=== PATIENT | male | born 1985 | race Caucasian/White ===

== ENCOUNTER 2016-11-15 21:39 | Emergency (ER) | payer MEDICAID ==
[2016-11-15] MEDS ORDERED: ONDANSETRON 4 MG/2 ML VIAL ONE (21:47)
--- NOTE | 2016-11-15 22:00 | EDPHY ---
H & P Stated Complaint: chills, lightheaded, nausea,, genaral malaise Time Seen by Provider: 11/15/16 21:59 - Personal History Current Tetanus Diphtheria and Acellular Pertussis (TDAP): Yes - Medical/Surgical History Hx Asthma: No Hx Chronic Respiratory Disease: No Hx Diabetes: No Hx Cardiac Disease: No Hx Renal Disease: No Hx Cirrhosis: No Hx Alcoholism: No Hx HIV/AIDS: No Hx Splenectomy or Spleen Trauma: No - Social History Smoking Status: Never smoked Constitutional: Initial Vital Signs Temperature (C) 36.5 C 11/15/16 21:43 Heart Rate 73 11/15/16 21:43 Respiratory Rate 20 11/15/16 21:43 Blood Pressure 155/107 H 11/15/16 21:43 O2 Sat (%) 98 11/15/16 21:43 O2 Delivery Mode Room Air Allergies/Adverse Reactions: Penicillins Allergy (Verified 11/15/16 21:43) Home Medications: Medication Instructions Recorded NK [No Known Home Meds] 11/15/16 Departure - Departure Referrals: NONE *PRIMARY CARE P,. [Primary Care Provider] - As per Instructions
[2016-11-15] MEDS ORDERED: NS 1,000 ML IV ONE (22:26)
--- NOTE | 2016-11-15 22:35 | EDPHY ---
HPI/HX/ROS/PE/MDM Narrative: CHIEF COMPLAINT: Lightheadedness HISTORY OF PRESENT ILLNESS: The patient is a 30 y/o male arriving with his friend complaining of acute onset near-syncopal symptoms about 20 minutes prior to arrival. He denies trauma or recent illness, and felt normal upon waking this morning. While watching a movie this evening, he developed lightheadedness, chills, flushing, and nausea, and describes feeling as if he were going to pass out, though he denies previous syncopal episodes. He states the feeling is similar to when he has been preparing for a big game or when he is receiving vaccinations. He cannot identify any obvious precipitating factors. His friend states they were watching a movie about tsunamis that was vaguely distressing with symptoms began. He describes a few previous episodes of rapid heart rate that resolve after 30 seconds; he did not experience this tonight. Denies alcohol use, marijuana or other drug use. He denies recent changes in diet or medications, and denies history of cardiac disease, respiratory disease, anxiety, reflux, or other GI problems. He denies fever, chest pain, shortness of breath, vomiting, diarrhea, urinary complaints, headache, lightheadedness. He feels that most of his symptoms have resolved at this point. REVIEW OF SYSTEMS: Aside from elements discussed in the HPI, a comprehensive 10-point review of systems was reviewed and is negative. PAST MEDICAL HISTORY: Denies. 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 VITAL SIGNS: Reviewed by me GENERAL: Well-developed, well-nourished, resting comfortably in no respiratory distress. HEENT: Atraumatic. Eyes: No icterus, no injection. Mouth: moist mucous membranes. No erythema or lesions. Neck: supple with no adenopathy. LUNGS: Clear to auscultation bilaterally, no wheezes, rhonchi or rales. CARDIAC: Regular rate and rhythm, no rubs, murmurs or gallops. ABDOMEN: Soft, nontender, nondistended, bowel sounds normal. BACK: No CVA tenderness. EXTREMITIES: No trauma. No edema. Range of motion is normal throughout. NEURO: Alert and oriented, grossly nonfocal. SKIN: Warm and dry, no rash. PSYCHIATRIC: Normal mentation, no agitation. Somewhat flat affect. Portions of this note were transcribed by a biomedical photographer. I personally performed a history, physical exam, medical decision making, and confirmed accuracy of information the transcribed note. ED Course: The patient is a 30 y/o male presenting today following near-syncopal event consistent with vasovagal reaction. He is asymptomatic upon assessment. Exam unremarkable. IV established. Plan for 1L IV NS, basic labs, and EKG. The 12 lead EKG was interpreted by myself. See hard copy and/or "tracemaster" electronic copy for interpretation. Sinus rhythm, rate 63. Reassessed patient. Discussed workup with him. His EKG is normal. Labs are unremarkable. He will be discharged home with return precautions and information on vasovagal events. Recommended following up with his PCP if symptoms recur. Strict ED return precautions given for worsening of condition. The patient is comfortable with this plan. MDM: Differential diagnosis of the patient's presenting complaint was considered including but not limited to vasovagal syncope, arrhythmia, dehydration, and blood loss. - Data Points Laboratory Results: Laboratory Results 11/15/16 22:50 11/15/16 22:50 11/15/16 11/15/16 22:50 22:50 WBC 6.58 10^3/uL 10^3/uL (3.80-9.50) RBC 5.38 10^6/uL 10^6/uL (4.40-6.38) Hgb 15.8 g/dL g/dL (13.7-17.5) Hct 44.5 % % (40.0-51.0) MCV 82.7 fL fL (81.5-99.8) MCH 29.4 pg pg (27.9-34.1) MCHC 35.5 g/dL g/dL (32.4-36.7) RDW 11.8 % % (11.5-15.2) Plt Count 179 10^3/uL 10^3/uL (150-400) MPV 11.4 fL fL (8.7-11.7) Neut % (Auto) 63.8 % % (39.3-74.2) Lymph % (Auto) 25.8 % % (15.0-45.0) Mcleod % (Auto) 8.1 % % (4.5-13.0) Eos % (Auto) 1.8 % % (0.6-7.6) Baso % (Auto) 0.3 % % (0.3-1.7) Nucleat RBC Rel Count 0.0 % % (0.0-0.2) Absolute Neuts (auto) 4.20 10^3/uL 10^3/uL (1.70-6.50) Absolute Lymphs (auto) 1.70 10^3/uL 10^3/uL (1.00-3.00) Absolute Monos (auto) 0.53 10^3/uL 10^3/uL (0.30-0.80) Absolute Eos (auto) 0.12 10^3/uL 10^3/uL (0.03-0.40) Absolute Basos (auto) 0.02 10^3/uL 10^3/uL (0.02-0.10) Absolute Nucleated RBC 0.00 10^3/uL 10^3/uL (0-0.01) Immature Gran % 0.2 % % (0.0-1.1) Immature Gran # 0.01 10^3/uL 10^3/uL (0.00-0.10) Sodium 138 mEq/L mEq/L (134-144) Potassium 4.2 mEq/L mEq/L (3.5-5.2) Chloride 100 mEq/L mEq/L (97-110) Carbon Dioxide 26 mEq/l mEq/l (22-31) Anion Gap 12 mEq/L mEq/L (8-16) BUN 17 mg/dL mg/dL (7-23) Creatinine 0.9 mg/dL mg/dL (0.7-1.3) Estimated GFR > 60 Glucose 109 mg/dL H mg/dL (70-100) Calcium 10.0 mg/dL mg/dL (8.5-10.4) Medications Given: Discontinued Medications Sodium Chloride (Ns) 1,000 mls @ 0 mls/hr IV ONCE ONE PRN Reason: Wide Open Stop: 11/15/16 22:27 Last Admin: 11/15/16 22:57 Dose: Not Given Ondansetron HCl (Zofran Odt) 4 mg PO EDNOW ONE Stop: 11/15/16 23:39 Last Admin: 11/15/16 23:44 Dose: 4 mg General Time Seen by Provider: 11/15/16 21:59 Initial Vital Signs: Initial Vital Signs Temperature (C) 36.5 C 11/15/16 21:43 Heart Rate 73 11/15/16 21:43 Respiratory Rate 20 11/15/16 21:43 Blood Pressure 155/107 H 11/15/16 21:43 O2 Sat (%) 98 11/15/16 21:43 O2 Delivery Mode Room Air Allergies/Adverse Reactions: Penicillins Allergy (Verified 11/15/16 21:43) Home Medications: Medication Instructions Recorded NK [No Known Home Meds] 11/15/16 Departure - Departure Disposition: Home, Routine, Self-Care Clinical Impression: Vasovagal near syncope Condition: Good Instructions: Near Syncope (ED) Additional Instructions: 1. If symptoms recur, lie down and rest. If you have repeated episodes, follow up with your primary care provider. 2. Return to the ED if you lose consciousness, experience shortness of breath, or chest pain, or if your palpitations become more frequent or persistent. Referrals: NONE *PRIMARY CARE P,. [Primary Care Provider] - As per Instructions [facility],. [Clinic] - As per Instructions Report Scribed for: Leida Baker Report Scribed by: Meghann Luu Date of Report: 11/15/16 Time of Report: 22:35
--- NOTE | 2016-11-15 22:40 | CPEKG ---
Heart Rate: 63 RR Interval: 952 P-R Interval: 152 QRSD Interval: 90 QT Interval: 412 QTC Interval: 422 P [place]: 64 QRS [place]: 43 T Wave [place]: 25 EKG Severity - NORMAL ECG - EKG Impression: SINUS RHYTHM Electronically Signed By: Leida Baker 15-Nov-2016 22:45:01
[2016-11-15 22:59] LABS: % IMMATURE GRANULYOCYTES 0.2 % (0.0-1.1); ABSOLUTE IMMATURE GRANULOCYTES 0.01 10^3/uL (0.00-0.10); ADD DIFF? NO; ADD MORPH? NO; ADD SCAN? NO; ATYPICAL LYMPHOCYTE FLAG 0 (0-99); FRAGMENT RBC FLAG 0 (0-99); HEMATOCRIT 44.5 % (40.0-51.0); HEMOGLOBIN 15.8 g/dL (13.7-17.5); LEFT SHIFT FLG 10 (0-99); LIPEMIA HEMOLYSIS FLAG 90 (0-99); MEAN CELL HEMOGLOBIN 29.4 pg (27.9-34.1); MEAN CELL HEMOGLOBIN CONCENTR. 35.5 g/dL (32.4-36.7); MEAN CELL VOLUME 82.7 fL (81.5-99.8); MEAN PLATELET VOLUME 11.4 fL (8.7-11.7); PLATELET CLUMPS FLAG 10 (0-99); PLATELET COUNT 179 10^3/uL (150-400); RED BLOOD CELL COUNT 5.38 10^6/uL (4.40-6.38); RED CELL DISTRIBUTION WIDTH 11.8 % (11.5-15.2)
[2016-11-15 23:28] LABS: ANION GAP 12 mEq/L (8-16); CARBON DIOXIDE 26 mEq/l (22-31); CHLORIDE 100 mEq/L (97-110); CREATININE 0.9 mg/dL (0.7-1.3); GLOMERULAR FILTRATION RATE > 60; GLUCOSE 109 mg/dL (70-100); POTASSIUM 4.2 mEq/L (3.5-5.2); SODIUM 138 mEq/L (134-144)
[2016-11-15] MEDS ORDERED: ONDANSETRON DISINTEGRATING 4 MG TAB PO ONE (23:38)
[2016-11-15 23:45] VITALS: BP 124/80; PULSE 83; RESP 14; TEMP 97.9; O2SAT 96
== END 2016-11-15 23:44 | disposition home or self-care (01) ==
DX: R55 Syncope and collapse (principal)
CPT/HCPCS: J2405